=== PATIENT | female | born 1955 | race Caucasian/White ===

== ENCOUNTER → 2022-03-18 09:30 | Outpatient (CLI) | payer OTHER, SELFPAY ==
--- NOTE | 2022-03-18 | DI.MRI.S_ITS ---
PROCEDURE: MR LUMBAR SPINE WO CON INDICATIONS: LUMBAR INJURY TECHNIQUE: Noncontrast sagittal T1 spin echo and T2 fast echo, sagittal STIR, and T2 fast spin echo through the lumbar spine. In cases with scoliosis, additional coronal T2 fast spin echo may be performed. COMPARISON: None. FINDINGS: Image quality: Excellent. Alignment and Curvature: L4-5 grade 1 anterior spondylolisthesis noted. Bone Marrow: Chronic degenerative endplate changes noted particularly at L5-S1. But shape compression fracture of L2 with 30% height loss noted. Marrow edema present in the sacrum with suggestion of nondisplaced fractures in the sacral ala. Spinal Cord: Conus medullaris terminates at the L1 level. Visualized cord demonstrates normal signal and size. Paraspinous Soft Tissues: No paravertebral masses. T12-L1: Normal appearance. L1-L2: Normal appearance. L2-3: Disc height is maintained. Circumferential disc bulge effaces the right lateral recess. Moderate bilateral foraminal stenosis present. L3-4: Disc space narrowing with hypertrophic facet joints results in moderate central stenosis. Moderate right and mild left foraminal stenosis present. L4-5: Disc height is maintained. Circumferential disc bulge with hypertrophic facet joints combined with ligamentum flavum laxity to result in severe central stenosis. No foraminal stenosis L5-S1: Disc space narrowing and circumferential disc bulge combined with hypertrophic facet joints result in mild central stenosis mild bilateral foraminal stenosis present. IMPRESSION: 1. Probable nondisplaced sacral fractures can be confirmed with CT. 3. Old L2 wedge-shaped compression fracture without marrow edema or retropulsed fracture fragment. 3. Multilevel degenerative disc disease arthropathy results in severe central stenosis at L4-5 Approved by: Humberto Daniels M.D. on 03/18/2022 at 16:53
== END ==
PROVIDERS: PCP Nurse Practitioner Family; Referring Provider Nurse Practitioner Family; Visit Provider Nurse Practitioner Family
DX: M47.816 Spondylosis without myelopathy or radiculopathy, lumbar region (principal); M48.061 Spinal stenosis, lumbar region without neurogenic claudication; M48.56XS Collapsed vertebra, not elsewhere classified, lumbar region, sequela of fracture; M54.50 Low back pain, unspecified
CPT/HCPCS: 72148

== ENCOUNTER → 2022-08-14 09:13 | Outpatient (CLI) | payer OTHER, SELFPAY ==
--- NOTE | 2022-08-14 09:17 | DI.CT.S_ITS ---
PROCEDURE: CT CHEST W CON INDICATIONS: MALIGNANT NEOPLASM OF MOUTH TECHNIQUE: After the administration of intravenous contrast, 5 mm thick sections acquired from the pulmonary apices to the posterior costophrenic angles. 1 mm axial lung, 5 mm thick coronal and sagittal reformats and 7 mm axial MIP were acquired. For radiation dose reduction, the following was used: automated exposure control, adjustment of mA and/or kV according to patient size. COMPARISON: None. FINDINGS: Image quality: Excellent. Lungs and pleura: There is moderate centrilobular emphysema with an apical predominance. Mediastinum: Heart size is normal. No pericardial effusion. No mediastinal or hilar adenopathy by size criteria. Thoracic aorta and central pulmonary arteries are normal in size. Esophagus is normal in caliber. No hiatal hernia. Bones and chest wall: No suspicious bony lesions. No vertebral body compression fractures. No axillary or supraclavicular adenopathy by size criteria. Thyroid gland is unremarkable . Abdomen: Visualized upper abdominal solid organs appear normal. Upper abdominal bowel loops are normal in caliber. IMPRESSION: 1. No suspicious pulmonary lesions or adenopathy to suggest thoracic metastasis. Dictated by: Jumana Smith M.D. on 08/14/2022 at 13:22 Approved by: Jumana Smith M.D. on 08/14/2022 at 13:24
--- NOTE | 2022-08-14 09:17 | DI.CT.S_ITS ---
PROCEDURE: CT SOFT TISSUE NECK W CON INDICATIONS: MALIGNANT NEOPLASM OF MOUTH TECHNIQUE: Helical axial CT of the neck was obtained after intravenous contrast injection and reformatted in multiple planes. Radiation dose reduction was achieved utilizing automated exposure control and/or weight-based dosing. COMPARISON: None. FINDINGS: Skull Base: The visualized intracranial contents, skull, and orbits are unremarkable. Visualized paranasal sinuses are clear. Pharynx and Larynx: The nasopharyngeal airway is patent and midline. Parapharyngeal soft tissues including palatine tonsils and base of the tongue are normal. Retropharyngeal space unremarkable. Normal appearance of the false and true vocal cords. Muscles and Fascial Planes: Fascial planes are well maintained. No abscess or mass lesion. Lymph Nodes: Lateral 2A mild adenopathy measures up to 1.1 cm on the left. Vasculature: Unremarkable. Submandibular and Parotid Glands: Right submandibular gland is absent. Left submandibular gland and both parotid glands unremarkable Thyroid: Unremarkable. No enlarged or calcified nodules. Bones: No acute fracture. No osteolytic or blastic lesion is evident. Normal bone mineralization. Reversal the normal cervical lordosis Lung Apices: Emphysematous changes noted in both lung apices IMPRESSION: 1. Mild left level 2A adenopathy measures up to 1.1 cm. 2. Absent right submandibular gland, presumably surgical. 3. Biapical pulmonary emphysema Approved by: Humberto Daniels M.D. on 08/14/2022 at 16:30
== END ==
PROVIDERS: PCP Nurse Practitioner Family; Referring Provider Internal Medicine Medical Oncology; Visit Provider Internal Medicine Medical Oncology
DX: C06.9 Malignant neoplasm of mouth, unspecified (principal); J43.2 Centrilobular emphysema; R59.0 Localized enlarged lymph nodes
CPT/HCPCS: 70491; 71260; Q9967

== ENCOUNTER → 2024-09-05 13:02 | Outpatient (CLI) | payer MEDICARE, SELFPAY | LOC: WC 13:08 | PROVIDERS: PCP Nurse Practitioner Family; Visit Provider Surgery | DX: L98.492 Non-pressure chronic ulcer of skin of other sites with fat layer exposed (principal); L59.8 Other specified disorders of the skin and subcutaneous tissue related to radiation | CPT/HCPCS: 99203; 99213 ==

== ENCOUNTER → 2024-09-12 14:09 | Outpatient (CLI) | payer MEDICARE, SELFPAY | PROVIDERS: PCP Nurse Practitioner Family; Visit Provider Surgery | DX: L98.492 Non-pressure chronic ulcer of skin of other sites with fat layer exposed (principal); L59.8 Other specified disorders of the skin and subcutaneous tissue related to radiation | CPT/HCPCS: 97602; 99213 ==

== ENCOUNTER → 2024-09-20 13:04 | Outpatient (CLI) | payer MEDICARE, SELFPAY | PROVIDERS: PCP Nurse Practitioner Family; Referring Provider Nurse Practitioner Family; Visit Provider Surgery | DX: L98.492 Non-pressure chronic ulcer of skin of other sites with fat layer exposed (principal); L59.8 Other specified disorders of the skin and subcutaneous tissue related to radiation | CPT/HCPCS: 99213 ==

== ENCOUNTER → 2024-10-04 10:06 | Outpatient (CLI) | payer MEDICARE, SELFPAY | PROVIDERS: PCP Nurse Practitioner Family; Visit Provider Surgery | DX: L98.492 Non-pressure chronic ulcer of skin of other sites with fat layer exposed (principal); L59.8 Other specified disorders of the skin and subcutaneous tissue related to radiation; R60.0 Localized edema; L53.9 Erythematous condition, unspecified; Z79.2 Long term (current) use of antibiotics | CPT/HCPCS: 11042; 87070; 87075; 87205; 99213 ==

== ENCOUNTER → 2024-10-12 10:24 | Outpatient (CLI) | payer MEDICARE, SELFPAY | PROVIDERS: PCP Nurse Practitioner Family; Visit Provider Surgery | DX: L98.492 Non-pressure chronic ulcer of skin of other sites with fat layer exposed (principal); L59.8 Other specified disorders of the skin and subcutaneous tissue related to radiation; R60.0 Localized edema; L53.9 Erythematous condition, unspecified | CPT/HCPCS: 11042 ==

== ENCOUNTER → 2024-10-19 09:38 | Outpatient (CLI) | payer MEDICARE, SELFPAY | PROVIDERS: PCP Nurse Practitioner Family; Visit Provider Surgery | DX: L59.8 Other specified disorders of the skin and subcutaneous tissue related to radiation (principal); L98.492 Non-pressure chronic ulcer of skin of other sites with fat layer exposed; B37.0 Candidal stomatitis; Z85.810 Personal history of malignant neoplasm of tongue; Z92.3 Personal history of irradiation | CPT/HCPCS: 99212; 99213 ==

== ENCOUNTER → 2024-10-31 09:20 | Outpatient (CLI) | payer MEDICARE, SELFPAY | LOC: WC 09:21 | PROVIDERS: PCP Nurse Practitioner Family; Visit Provider Surgery | DX: L98.492 Non-pressure chronic ulcer of skin of other sites with fat layer exposed (principal); L59.8 Other specified disorders of the skin and subcutaneous tissue related to radiation; R60.0 Localized edema; L53.9 Erythematous condition, unspecified | CPT/HCPCS: 11042 ==

== ENCOUNTER → 2024-11-08 10:20 | Outpatient (CLI) | payer MEDICARE, SELFPAY | PROVIDERS: PCP Nurse Practitioner Family; Referring Provider Nurse Practitioner Family; Visit Provider Surgery | DX: L98.492 Non-pressure chronic ulcer of skin of other sites with fat layer exposed (principal); L59.8 Other specified disorders of the skin and subcutaneous tissue related to radiation; L53.9 Erythematous condition, unspecified; R60.0 Localized edema | CPT/HCPCS: 99213 ==

== ENCOUNTER → 2024-11-22 09:18 | Outpatient (CLI) | payer MEDICARE, SELFPAY | PROVIDERS: PCP Nurse Practitioner Family; Visit Provider Surgery | DX: L59.8 Other specified disorders of the skin and subcutaneous tissue related to radiation (principal); S11.80XA Unspecified open wound of other specified part of neck, initial encounter; R60.0 Localized edema; Z85.818 Personal history of malignant neoplasm of other sites of lip, oral cavity, and pharynx | CPT/HCPCS: 99213 ==

== ENCOUNTER → 2024-12-20 08:24 | Outpatient (CLI) | payer OTHER, SELFPAY | LOC: WC 01-02 08:26 | PROVIDERS: PCP Registered Nurse; Referring Provider Registered Nurse; Visit Provider Surgery | DX: L98.492 Non-pressure chronic ulcer of skin of other sites with fat layer exposed (principal); L59.8 Other specified disorders of the skin and subcutaneous tissue related to radiation; L92.9 Granulomatous disorder of the skin and subcutaneous tissue, unspecified; R60.0 Localized edema | CPT/HCPCS: 17250; 87070; 87075; 87205; 99213 ==

== ENCOUNTER → 2025-01-03 09:10 | Outpatient (CLI) | payer OTHER, SELFPAY | PROVIDERS: PCP Registered Nurse; Referring Provider Registered Nurse; Visit Provider Surgery | DX: L59.8 Other specified disorders of the skin and subcutaneous tissue related to radiation (principal); S11.80XA Unspecified open wound of other specified part of neck, initial encounter; R60.0 Localized edema | CPT/HCPCS: 99212; 99213 ==

== ENCOUNTER → 2025-01-17 14:19 | Outpatient (CLI) | payer OTHER, SELFPAY | PROVIDERS: PCP Registered Nurse; Referring Provider Registered Nurse; Visit Provider Surgery | DX: L59.8 Other specified disorders of the skin and subcutaneous tissue related to radiation (principal); L98.492 Non-pressure chronic ulcer of skin of other sites with fat layer exposed; B37.0 Candidal stomatitis | CPT/HCPCS: 99213 ==

== ENCOUNTER → 2025-01-31 13:46 | Outpatient (CLI) | payer OTHER, SELFPAY | PROVIDERS: PCP Registered Nurse; Referring Provider Registered Nurse; Visit Provider Surgery | DX: L98.492 Non-pressure chronic ulcer of skin of other sites with fat layer exposed (principal); L59.8 Other specified disorders of the skin and subcutaneous tissue related to radiation; B37.0 Candidal stomatitis | CPT/HCPCS: 99212; 99213 ==

== ENCOUNTER → 2025-02-14 14:25 | Outpatient (CLI) | payer OTHER, SELFPAY | PROVIDERS: PCP Registered Nurse; Referring Provider Registered Nurse; Visit Provider Surgery | DX: L59.8 Other specified disorders of the skin and subcutaneous tissue related to radiation (principal); S11.80XA Unspecified open wound of other specified part of neck, initial encounter; L92.8 Other granulomatous disorders of the skin and subcutaneous tissue; R60.0 Localized edema | CPT/HCPCS: 17250; 99213 ==

== ENCOUNTER → 2025-03-01 14:59 | Outpatient (CLI) | payer OTHER, SELFPAY | LOC: WC 14:59 | PROVIDERS: PCP Registered Nurse; Referring Provider Registered Nurse; Visit Provider Surgery | DX: L59.8 Other specified disorders of the skin and subcutaneous tissue related to radiation (principal); S11.80XA Unspecified open wound of other specified part of neck, initial encounter; B37.0 Candidal stomatitis; R60.0 Localized edema | CPT/HCPCS: 99213 ==